=== PATIENT | male | born 1935 | race Caucasian/White ===

== ENCOUNTER 2021-04-10 01:10 | Inpatient (IN) | payer MEDICARE ==
[2021-04-10] VITALS (9 sets, daily range): BP systolic 119–147; BP diastolic 59–76
[~2021-04-10] VITALS: Ht 185.4 cm; Wt 73.5 kg
[2021-04-10] MEDS ORDERED: ONDANSETRON HCL INJ 2MG/ML 2ML 2 MG/ML VIAL IV STA (01:13)
[2021-04-10] MEDS ORDERED: MORPHINE SULFATE INJ 2 MG/ML SYR IV STA (01:13)
[2021-04-10] MEDS ORDERED: SODIUM CHLORIDE 0.9% 1000ML 1,000 ML IV ONE (01:15)
[2021-04-10 01:44] LABS: BASOPHILS % 0.4 % (0.0-1.0); EOSINOPHILS # (AUTO) 0.1 (0.0-0.4); EOSINOPHILS % 1.3 % (0.0-6.0); HEMATOCRIT 42.3 % (38.2-49.6); LYMPHOCYTES # (AUTO) 1.3 (1.0-3.2); LYMPHOCYTES % 23.6 % (18.0-39.1); MEAN CORPUSCULAR HEMOGLOBIN 31.5 pg (28-32); MEAN CORPUSCULAR HGB CONC 33.1 g/dL (31-35); MEAN CORPUSCULAR VOLUME 95.3 fL (81-99); MONOCYTES # (AUTO) 0.5 (0.2-0.8); MONOCYTES % 8.5 % (4.4-11.3); NEUTROPHILS # (AUTO) 3.6 (2.1-6.9); PLATELET COUNT 190 x10e3/uL (140-360); RED BLOOD COUNT 4.44 x10e6/uL (4.3-5.7); RED CELL DISTRIBUTION WIDTH 13.4 % (11.7-14.4)
[2021-04-10 01:58] LABS: AMYLASE 64 U/L (25-125); LIPASE 29 U/L (8-78)
[2021-04-10 02:00] LABS: ALBUMIN 4.2 g/dL (3.5-5.0); ALBUMIN/GLOBULIN RATIO 1.2 (0.8-2.0); ANION GAP 14.8 mmol/L (8-16); CALCIUM 9.5 mg/dL (8.4-10.2); CREATININE, SERUM 0.99 mg/dL (0.72-1.25); POTASSIUM 3.8 mmol/L (3.5-5.1)
[2021-04-10 02:06] LABS: CREATINE KINASE MB 4.4 ng/mL (0-5.0)
[2021-04-10] MEDS ORDERED: IOPAMIDOL 370 MG/ML 200 ML INFUS..BTL INJ ONE (02:21)
[2021-04-10] MEDS ORDERED: SODIUM CHLORIDE 0.9% 50ML 50 ML ONE ×2 (02:21→16:50)
[2021-04-10] MEDS ORDERED: SODIUM CHLORIDE 0.9% 1000ML 1,000 ML IV SCH (04:00)
[2021-04-10] MEDS ORDERED: MORPHINE SULFATE INJ 4 MG/ML INJ 1ML IV PRN (04:00)
[2021-04-10 04:03] LABS: CLARITY,URINE CLEAR (CLEAR); COLOR,URINE YELLOW (YELLOW); KETONES,URINE 1+ (NEGATIVE); LEUKOCYTE ESTERASE ,URINE NEGATIVE (NEGATIVE); NITRITE,URINE NEGATIVE (NEGATIVE); PROTEIN,URINE DIPSTICK NEGATIVE (NEGATIVE); URINE UROBILINOGEN 0.2 mg/dL (0.2 - 1)
[2021-04-10] MEDS ORDERED: BENZOCAINE 20% SPR 60 ML CAN MT ONE (04:15)
[2021-04-10] MEDS ORDERED: BENZOCAINE 20% SPR 60 ML CAN ONE (04:16)
[2021-04-10 04:24] LABS: BACTERIA,URINE MODERATE /HPF; EPITHELIAL CELLS,URINE FEW /LPF; RBC,URINE 0-5 /HPF (0-5); WBC,URINE (MAN) 0-5 /HPF (0-5)
[2021-04-10] MEDS ORDERED: ONDANSETRON HCL INJ 2MG/ML 2ML 2 MG/ML VIAL IV PRN ×2 (05:00→11:00)
[2021-04-10] MEDS: PIPERACILLIN/TAZOBACTAM 3.375 GM in SODIUM CHLORIDE 0.9% 50ML 50 ML IV SCH ×4 (05:13→21:53)
[2021-04-10] MEDS ORDERED: MULTIVITAMINS1 EAC8 (07:46)
[2021-04-10] MEDS ORDERED: COLCRYS0.6 MG PO (07:46)
[2021-04-10] MEDS ORDERED: LEVOTHYROXINE50 MCG PO (07:46)
[2021-04-10] MEDS ORDERED: VITAMIN B-121000 MCG PO (08:28)
[2021-04-10] MEDS ORDERED: FISH OIL 1,0001 EAC2 PO (08:28)
[2021-04-10] MEDS ORDERED: CHOLECALCIFEROL1 GM (08:28)
[2021-04-10] MEDS ORDERED: ASPIRIN81 MG PO (08:37)
[2021-04-10] MEDS: SODIUM CHLORIDE 0.9% 250ML IRRIG IR SCH ×4 (09:47→20:30)
[2021-04-10] MEDS ORDERED: DOCUSATE SODIUM 100 MG CAP PO PRN (11:00)
[2021-04-10] MEDS ORDERED: DEXTROSE 50% SYRINGE 50 ML IV PRN (11:00)
[2021-04-10] MEDS ORDERED: HYDRALAZINE HCL 20 MG/ML VIAL IV PRN (11:00)
[2021-04-10] MEDS ORDERED: BENZONATATE 100 MG CAP PO PRN (11:00)
[2021-04-10] MEDS ORDERED: POTASSIUM CHLORIDE 20 MEQ TAB CR PO PRN (11:00)
[2021-04-10] MEDS ORDERED: DIPHENHYDRAMINE HCL 25 MG CAP PO PRN (11:00)
[2021-04-10] MEDS ORDERED: ACETAMINOPHEN 325 MG TAB PO PRN (11:00)
[2021-04-10] MEDS ORDERED: SIMETHICONE 80 MG CHEW PO PRN (11:00)
[2021-04-10] MEDS ORDERED: ALBUTEROL/IPRATROPIUM 3 ML NEB NEB PRN (11:00)
[2021-04-10] MEDS ORDERED: LIDOCAINE 4% PATCH TP PRN (11:00)
[2021-04-10] MEDS ORDERED: DEXTROSE 5%/0.9% SOD CHL 1,000 ML IV SCH (11:00)
[2021-04-10] MEDS ORDERED: FENTANYL CITRATE/PF 100MCG/2 ML INJ ONE (15:59)
[2021-04-10] MEDS ORDERED: ENOXAPARIN SOD INJ 40 MG/0.4 ML SYR SC SCH (17:00)
[2021-04-10] MEDS ORDERED: BUPIVACAINE 0.25% 30ML SDV ONE (17:28)
[2021-04-10] MEDS ORDERED: SODIUM CHLORIDE 0.9% 250ML IRRIG IR SCH (17:45)
[2021-04-10] MEDS ORDERED: LEVOFLOXACIN 500MG/D5W 100ML 100 ML IV ONE (18:15)
[2021-04-10] MEDS: D5.45%NS/KCL 20MEQ 1,000 ML IV SCH (18:46)
[2021-04-10] MEDS ORDERED: MELATONIN 5 MG TABLET PO PRN (21:00)
[2021-04-11] VITALS: BP 109/63
[2021-04-11] MEDS: SODIUM CHLORIDE 0.9% 250ML IRRIG IR SCH ×6 (00:28→23:12)
[2021-04-11 04:00] VITALS: BP 92/68
[2021-04-11 05:22] LABS: HEMOGLOBIN 11.8 g/dL (14.0-18.0); LYMPHOCYTES # (AUTO) 0.7 (1.0-3.2); LYMPHOCYTES % 7.9 % (18.0-39.1); MEAN CORPUSCULAR HEMOGLOBIN 31.7 pg (28-32); MEAN CORPUSCULAR HGB CONC 32.8 g/dL (31-35); MEAN CORPUSCULAR VOLUME 96.8 fL (81-99); MONOCYTES # (AUTO) 0.9 (0.2-0.8); MONOCYTES % 9.6 % (4.4-11.3); NEUTROPHILS # (AUTO) 7.6 (2.1-6.9); NEUTROPHILS % 82.2 % (38.7-80.0); PLATELET COUNT 141 x10e3/uL (140-360); RED BLOOD COUNT 3.72 x10e6/uL (4.3-5.7); RED CELL DISTRIBUTION WIDTH 13.9 % (11.7-14.4)
[2021-04-11 05:59] LABS: ALBUMIN/GLOBULIN RATIO 1.2 (0.8-2.0); ANION GAP 11.2 mmol/L (8-16); CREATININE, SERUM 0.82 mg/dL (0.72-1.25); POTASSIUM 4.2 mmol/L (3.5-5.1)
[2021-04-11] MEDS: PIPERACILLIN/TAZOBACTAM 3.375 GM in SODIUM CHLORIDE 0.9% 50ML 50 ML IV SCH ×3 (06:00→22:13)
[2021-04-11] MEDS: D5.45%NS/KCL 20MEQ 1,000 ML IV SCH ×3 (06:00→23:12)
[2021-04-11 06:22] LABS: MAGNESIUM 1.8 MG/DL (1.3-2.1)
[2021-04-11] MEDS ORDERED: PANTOPRAZOLE SOD 40 MG TABEC PO SCH (07:30)
[2021-04-11 07:49] VITALS: BP 111/59
[2021-04-11 08:07] VITALS: BP 111/59
[2021-04-11] MEDS: MORPHINE SULFATE INJ 2 MG/ML SYR IV PRN ×2 (11:30→17:06)
[2021-04-11] MEDS: HYDROMORPHONE 1MG/1ML INJ IV PRN ×2 (14:38→20:15)
[2021-04-11 20:00] VITALS: BP 137/83
[2021-04-12] VITALS (8 sets, daily range): BP systolic 132–150; BP diastolic 71–91
[2021-04-12] MEDS: MORPHINE SULFATE INJ 2 MG/ML SYR IV PRN ×5 (03:44→22:29)
[2021-04-12] MEDS: SODIUM CHLORIDE 0.9% 250ML IRRIG IR SCH ×5 (04:31→21:27)
[2021-04-12] MEDS: PIPERACILLIN/TAZOBACTAM 3.375 GM in SODIUM CHLORIDE 0.9% 50ML 50 ML IV SCH ×3 (05:29→22:23)
[2021-04-12 05:40] LABS: BASOPHILS % 0.4 % (0.0-1.0); EOSINOPHILS # (AUTO) 0.1 (0.0-0.4); EOSINOPHILS % 1.4 % (0.0-6.0); HEMATOCRIT 39.3 % (38.2-49.6); HEMOGLOBIN 12.3 g/dL (14.0-18.0); LYMPHOCYTES # (AUTO) 1.3 (1.0-3.2); LYMPHOCYTES % 17.5 % (18.0-39.1); MEAN CORPUSCULAR HEMOGLOBIN 31.5 pg (28-32); MEAN CORPUSCULAR HGB CONC 31.3 g/dL (31-35); MEAN CORPUSCULAR VOLUME 100.5 fL (81-99); MONOCYTES # (AUTO) 1.1 (0.2-0.8); MONOCYTES % 14.2 % (4.4-11.3); NEUTROPHILS # (AUTO) 4.9 (2.1-6.9); PLATELET COUNT 146 x10e3/uL (140-360); RED BLOOD COUNT 3.91 x10e6/uL (4.3-5.7); RED CELL DISTRIBUTION WIDTH 14.1 % (11.7-14.4)
[2021-04-12 05:58] LABS: ANION GAP 10.8 mmol/L (8-16); CALCIUM 7.9 mg/dL (8.4-10.2); CREATININE, SERUM 0.81 mg/dL (0.72-1.25); POTASSIUM 3.8 mmol/L (3.5-5.1)
[2021-04-12] MEDS: D5.45%NS/KCL 20MEQ 1,000 ML IV SCH ×2 (09:45→19:45)
[2021-04-12] MEDS ORDERED: BISACODYL 10 MG SUPP PR ONE (13:45)
[2021-04-12] MEDS ORDERED: BISACODYL 10 MG SUPP PR PRN (21:00)
[2021-04-13] VITALS (8 sets, daily range): BP systolic 127–146; BP diastolic 70–79
[2021-04-13] MEDS: SODIUM CHLORIDE 0.9% 250ML IRRIG IR SCH ×3 (01:55→08:43)
[2021-04-13] MEDS: MORPHINE SULFATE INJ 2 MG/ML SYR IV PRN ×3 (01:56→21:13)
[2021-04-13] MEDS: D5.45%NS/KCL 20MEQ 1,000 ML IV SCH ×2 (05:41→16:51)
[2021-04-13 05:43] LABS: BASOPHILS % 0.4 % (0.0-1.0); EOSINOPHILS # (AUTO) 0.2 (0.0-0.4); EOSINOPHILS % 3.1 % (0.0-6.0); HEMATOCRIT 41.4 % (38.2-49.6); HEMOGLOBIN 13.4 g/dL (14.0-18.0); LYMPHOCYTES # (AUTO) 1.4 (1.0-3.2); LYMPHOCYTES % 19.2 % (18.0-39.1); MEAN CORPUSCULAR HEMOGLOBIN 31.5 pg (28-32); MEAN CORPUSCULAR HGB CONC 32.4 g/dL (31-35); MEAN CORPUSCULAR VOLUME 97.2 fL (81-99); MONOCYTES # (AUTO) 0.9 (0.2-0.8); MONOCYTES % 13.2 % (4.4-11.3); NEUTROPHILS # (AUTO) 4.5 (2.1-6.9); NEUTROPHILS % 63.7 % (38.7-80.0); PLATELET COUNT 152 x10e3/uL (140-360); RED BLOOD COUNT 4.26 x10e6/uL (4.3-5.7); RED CELL DISTRIBUTION WIDTH 13.5 % (11.7-14.4)
[2021-04-13] MEDS: PIPERACILLIN/TAZOBACTAM 3.375 GM in SODIUM CHLORIDE 0.9% 50ML 50 ML IV SCH ×3 (05:59→21:43)
[2021-04-13 06:11] LABS: ANION GAP 11.7 mmol/L (8-16); CALCIUM 8.1 mg/dL (8.4-10.2); CREATININE, SERUM 0.76 mg/dL (0.72-1.25); POTASSIUM 3.7 mmol/L (3.5-5.1)
[2021-04-13] MEDS ORDERED: BISACODYL 10 MG SUPP PR ONE (09:00)
[2021-04-13] MEDS: ENOXAPARIN SOD INJ 40 MG/0.4 ML SYR SC SCH (16:51)
[2021-04-14] VITALS (7 sets, daily range): BP systolic 115–138; BP diastolic 71–78
[2021-04-14] MEDS: MORPHINE SULFATE INJ 2 MG/ML SYR IV PRN ×3 (03:51→22:05)
[2021-04-14] MEDS: PIPERACILLIN/TAZOBACTAM 3.375 GM in SODIUM CHLORIDE 0.9% 50ML 50 ML IV SCH ×3 (05:33→22:00)
[2021-04-14] MEDS: D5.45%NS/KCL 20MEQ 1,000 ML IV SCH ×2 (05:33→22:13)
[2021-04-14 05:44] LABS: BASOPHILS % 0.6 % (0.0-1.0); EOSINOPHILS # (AUTO) 0.5 (0.0-0.4); HEMATOCRIT 36.8 % (38.2-49.6); HEMOGLOBIN 11.8 g/dL (14.0-18.0); LYMPHOCYTES # (AUTO) 1.4 (1.0-3.2); LYMPHOCYTES % 21.6 % (18.0-39.1); MEAN CORPUSCULAR HEMOGLOBIN 31.6 pg (28-32); MEAN CORPUSCULAR HGB CONC 32.1 g/dL (31-35); MEAN CORPUSCULAR VOLUME 98.7 fL (81-99); MONOCYTES # (AUTO) 0.6 (0.2-0.8); MONOCYTES % 9.6 % (4.4-11.3); NEUTROPHILS # (AUTO) 3.7 (2.1-6.9); NEUTROPHILS % 59.7 % (38.7-80.0); PLATELET COUNT 143 x10e3/uL (140-360); RED BLOOD COUNT 3.73 x10e6/uL (4.3-5.7); RED CELL DISTRIBUTION WIDTH 13.2 % (11.7-14.4)
[2021-04-14 06:20] LABS: ANION GAP 9.6 mmol/L (8-16); CALCIUM 8.2 mg/dL (8.4-10.2); CREATININE, SERUM 0.77 mg/dL (0.72-1.25); POTASSIUM 3.6 mmol/L (3.5-5.1)
[2021-04-14] MEDS ORDERED: ACETAMINOPHEN/CODEINE 300MG - 30MG TAB PO PRN (07:45)
[2021-04-14] MEDS: ENOXAPARIN SOD INJ 40 MG/0.4 ML SYR SC SCH (16:52)
[2021-04-14] MEDS: ONDANSETRON HCL INJ 2MG/ML 2ML 2 MG/ML VIAL IV PRN (17:59)
[2021-04-15] VITALS: BP 140/76
[2021-04-15] MEDS: MORPHINE SULFATE INJ 2 MG/ML SYR IV PRN ×2 (02:42→06:13)
[2021-04-15 04:00] VITALS: BP 135/78
[2021-04-15] MEDS: PIPERACILLIN/TAZOBACTAM 3.375 GM in SODIUM CHLORIDE 0.9% 50ML 50 ML IV SCH (05:12)
[2021-04-15] MEDS: ONDANSETRON HCL INJ 2MG/ML 2ML 2 MG/ML VIAL IV PRN (06:14)
[2021-04-15 08:00] VITALS: BP 146/86
[2021-04-15 09:34] VITALS: BP 146/86
[2021-04-15 15:23] VITALS: BP 132/86
== END 2021-04-15 16:33 | disposition home or self-care (01) | DRG 336 ==
LOC: ER 01:14 → ERHOLD 03:50 → MED/SURG3 04:51 → MED/SURG 04-12 10:31
PROVIDERS: ADMIT Internal Medicine; ATTEND Internal Medicine
PROC: 0DNA0ZZ Release Jejunum, Open Approach (ICD-10-PCS; principal; 2021-04-10 16:00)
DX: K56.50 Intestinal adhesions [bands], unspecified as to partial versus complete obstruction (principal); M48.55XA Collapsed vertebra, not elsewhere classified, thoracolumbar region, initial encounter for fracture; E03.9 Hypothyroidism, unspecified; E86.0 Dehydration; Z20.822 Contact with and (suspected) exposure to COVID-19
CPT/HCPCS: 36415; 74019; 74177; 80048; 80053; 81001; 82150; 82550; 82553; 82948; 83605; 83690; 83735; 84100; 84484; 85025; 93005; 96360; 97139; 99251; 99284; J1170; J1650; J1956; J2270; J2405; J2543; J3010; J7030; J7042; Q9967; U0002

== ENCOUNTER 2024-08-14 11:23 | Emergency (ER) | payer MEDICARE ==
[~2024-08-14] VITALS: Ht 185.4 cm; Wt 73.5 kg
[~2024-08-14 11:23] MED LIST: ASPIRIN81 MG PO; CHOLECALCIFEROL1 GM; COLCRYS0.6 MG PO; FISH OIL 1,0001 EAC2 PO; LEVOTHYROXINE50 MCG PO; MULTIVITAMINS1 EAC8; VITAMIN B-121000 MCG PO
[2024-08-14 12:35] VITALS: PULSE 65; RESP 17; TEMP 98.4; O2SAT 100
== END 2024-08-14 14:01 | disposition home or self-care (01) ==
LOC: ER 12:53
DX: R09.81 Nasal congestion (principal); J31.0 Chronic rhinitis; E03.9 Hypothyroidism, unspecified; H40.9 Unspecified glaucoma; Z85.51 Personal history of malignant neoplasm of bladder
CPT/HCPCS: 99282

== ENCOUNTER 2024-11-27 19:32 | Emergency (ER) | payer MEDICARE ==
[~2024-11-27] VITALS: Ht 185.4 cm; Wt 73.5 kg
[2024-11-27 19:50] VITALS: TEMP 98
[2024-11-27 23:00] VITALS: PULSE 51; RESP 18
[2024-11-27 23:53] VITALS: BP 146/87; O2SAT 95
== END 2024-11-27 23:45 | disposition home or self-care (01) ==
LOC: ER 20:45
DX: R07.89 Other chest pain (principal); E03.9 Hypothyroidism, unspecified; Z85.51 Personal history of malignant neoplasm of bladder
CPT/HCPCS: 71101; 99284